=== PATIENT | female | born 1975 | race Two or more races ===

== ENCOUNTER 2018-06-14 11:53 | Inpatient (IN) | payer SELFPAY ==
[~2018-06-14] VITALS: Ht 157.5 cm; Wt 86.2 kg
[2018-06-14] MEDS ORDERED: SODIUM CHLORIDE 0.9% 1,000 ML IVB ONE (12:38)
[2018-06-14 12:42] LABS: Urine Bacteria NONE SEEN /hpf (None Seen); Urine Blood 3+ /uL (Negative); Urine Mucus FEW (None Seen); Urine Specific Gravity 1.025 (1.001-1.035); Urine WBC 128 /hpf (0 - 5)
[2018-06-14] MEDS ORDERED: ONDANSETRON HCL 4 MG/2 ML VIAL IV ONE (12:45)
[2018-06-14] MEDS ORDERED: HYDROmorphone HCL 2 MG/ML VL IV ONE (12:45)
[2018-06-14 14:24] LABS: Albumin 3.6 g/dL (3.4-5.0); Calcium 9.4 mg/dL (8.5-10.1); Potassium 4.1 mmol/L (3.5-5.1)
[2018-06-14 14:26] LABS: Basophils # (auto) 0 uL; Basophils % (auto) 0.2 % (0.0-2.0); Eosinophils # (auto) 0.1 uL; Eosinophils % (auto) 0.7 % (0.0-7.0); Hematocrit 37.7 % (36.0-46.0); Lymphocytes # (auto) 1.6 uL; Mean Corpuscular Hemoglobin 31.3 pg (28.0-32.0); Mean Corpuscular Hgb Conc. 34.5 g/dL (32.0-36.0); Mean Corpuscular Volume 90.9 fL (80.0-100.0); Monocytes # (auto) 0.6 uL; Neutrophils # (auto) 9.8 uL; Neutrophils % (auto) 81.1 % (37.0-80.0); Platelet Count (auto) 315 10^3/uL (140-450); Red Blood Cells 4.14 10^6/uL (4.0-5.20); Red Cell Distribution Width 13.4 % (11.8-14.3); White Blood Cell 12.1 10^3/uL (4.4-10.8)
[2018-06-14 14:29] LABS: BUN/Creatinine Ratio 17.2; Bilirubin, Total 0.3 mg/dL (0.2-1.0); Total Protein 8.6 g/dL (6.4-8.2)
[2018-06-14] MEDS ORDERED: cefTRIAXone 1GM/50ML D5W 50 ML IV ONE (18:30)
[2018-06-14] MEDS ORDERED: PROMETHAZINE HCL 25 MG/ML 1ML IV PRN (19:15)
[2018-06-14] MEDS ORDERED: LORazepam 0.5 MG TAB PO PRN (19:15)
[2018-06-14] MEDS ORDERED: ACETAMINOPHEN 500 MG TAB PO PRN (19:15)
[2018-06-14] MEDS ORDERED: traMADol HCL 50 MG TAB PO PRN (19:15)
[2018-06-14] MEDS ORDERED: TEMAZEPAM 15 MG CAP PO PRN (19:15)
[2018-06-14 21:55] VITALS: BP 121/76
[2018-06-14 22:15] VITALS: BP 121/76
[2018-06-14] MEDS ORDERED: cefTRIAXone 1GM/50ML D5W 50 ML IV SCH (23:00)
[2018-06-14] MEDS: FAMOTIDINE 20 MG TAB PO SCH (23:07)
[2018-06-14] MEDS: SODIUM CHLORIDE 0.9% 1,000 ML IV SCH (23:07)
[2018-06-15 05:00] VITALS: BP 105/61
[2018-06-15 06:32] LABS: Basophils # (auto) 0 uL; Basophils % (auto) 0.2 % (0.0-2.0); Eosinophils # (auto) 0.2 uL; Eosinophils % (auto) 1.8 % (0.0-7.0); Hematocrit 30.8 % (36.0-46.0); Hemoglobin 10.9 g/dL (12.2-16.2); Lymphocytes # (auto) 1.9 uL; Lymphocytes % (auto) 20.1 % (10.0-50.0); Mean Corpuscular Hemoglobin 31.8 pg (28.0-32.0); Mean Corpuscular Hgb Conc. 35.5 g/dL (32.0-36.0); Mean Corpuscular Volume 89.6 fL (80.0-100.0); Monocytes # (auto) 0.6 uL; Monocytes % (auto) 6.3 % (0.0-12.0); Neutrophils # (auto) 6.7 uL; Neutrophils % (auto) 71.6 % (37.0-80.0); Platelet Count (auto) 274 10^3/uL (140-450); Red Blood Cells 3.43 10^6/uL (4.0-5.20); Red Cell Distribution Width 13.3 % (11.8-14.3); White Blood Cell 9.3 10^3/uL (4.4-10.8)
--- NOTE | 2018-06-15 07:20 | NUR ---
OPENING SHIFT NOTE ASSUMED CARE OF PATIENT FROM ASSISTANT [employer] C[employer] MANAGER RN ALMA. PATIENT IS AWAKE AND ALERT X4. PATIENT HAS NO S/S OF DISTRESS/SOB OR PAIN. INSTRUCTED PATIENT ON POC, PATIENT VERBALIZED UNDERSTANDING. BED IS IN LOWEST POSITION WITH SIDE RAILS RAISED X2, BED WHEELS LOCKED, AND CALL LIGHT WITHIN REACH. WILL CONTINUE TO MONITOR.
[2018-06-15 08:00] VITALS: BP 102/58
[2018-06-15] MEDS: SODIUM CHLORIDE 0.9% 1,000 ML IV SCH (09:00)
--- NOTE | 2018-06-15 09:00 | NUR ---
MD MILLS AT BEDSIDE. UPDATED MD ON PATIENT'S STATUS. PER MD SHE WANTS PATIENT TO BE DISCHARGED AND GO TO OBGYN AT [facility]. WILL INFORM PRIMARY MD.
[2018-06-15 09:08] VITALS: BP 127/72
[2018-06-15 09:09] VITALS: BP 102/58
[2018-06-15] MEDS: FAMOTIDINE 20 MG TAB PO SCH (10:00)
--- NOTE | 2018-06-15 10:00 | NUR ---
MD BOTELLO AT BEDSIDE. UPDATED MD ON PATIENT'S STATUS, MD IS AWARE AND WILL PUT IN DISCHARGE ORDERS. WILL FOLLOW THROUGH WITH ORDERS
== END 2018-06-15 13:20 | disposition home or self-care (01) | DRG 760 ==
LOC: ER 11:57 → OVERFLOW 19:01 → CENTRAL 21:53
PROVIDERS: ADMIT Internal Medicine; ATTEND Internal Medicine
DX: N93.9 Abnormal uterine and vaginal bleeding, unspecified (principal); N10 Acute pyelonephritis; N83.291 Other ovarian cyst, right side; N83.202 Unspecified ovarian cyst, left side; E66.9 Obesity, unspecified; Z80.1 Family history of malignant neoplasm of trachea, bronchus and lung; Z68.34 Body mass index [BMI] 34.0-34.9, adult; Z83.3 Family history of diabetes mellitus; Z98.51 Tubal ligation status
CPT/HCPCS: 36415; 76830; 76856; 80053; 81001; 85025; 87086; 87088; 87186; 94761; 96361; 96374; 96375; G0378; J0696; J2405